=== PATIENT | male | born 2005 | race Caucasian/White ===

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

== ENCOUNTER 2025-02-19 10:38 | Outpatient (REF) | payer OTHER, SELFPAY ==
[2025-02-19 15:30] LABS: Abs Immature Grans 0.02 10^3/uL (0.0-0.06); HCT 42.6 % (40.0-50.0); HGB 14.8 g/dL (13.5-17.5); Immature Grans % 0.3 %; MCH 31.7 pg (27.0-33.0); MCHC 34.7 % (32.0-36.0); MCV 91 fL (80-95); MPV 10.9 fL (8.0-11.0); Platelet Count 206 10^3/uL (130-400); RBC 4.67 10^6/uL (4.36-5.78); RDW 11.8 % (11.8-14.1); RDW-SD 39.2 fL; WBC 7.12 10^3/uL (4.4-10.8)
[2025-02-19 15:48] LABS: ALT 24 U/L (16-63); AST 18 U/L (15-37); Albumin 4.5 g/dL (3.4-5.0); Alkaline Phosphatase 107 U/L (46-116); Anion Gap 7.9 mmol/L (3-11); BUN 21 mg/dL (7-18); Bilirubin, Total 0.7 mg/dL (0.2-1.0); CO2 30.1 mmol/L (21.0-32.0); Calcium 9.2 mg/dL (8.5-10.1); Chloride 102 mmol/L (98-107); Estimated GFR 129.13 (mL/min/1.73m2); Glucose 85 mg/dL (74-106); Potassium 4.9 mmol/L (3.5-5.1); Sodium 140 mmol/L (136-145); Total Protein 7.0 g/dL (6.4-8.2)
== END 2025-02-19 10:39 | disposition home or self-care (01) ==
LOC: NCHCN 10:38
PROVIDERS: Visit Provider Student in an Organized Health Care Education/Training Program
DX: F41.9 Anxiety disorder, unspecified (principal)
CPT/HCPCS: 80053; 85025

== ENCOUNTER 2025-02-24 15:27 | Emergency (ER) | payer OTHER, SELFPAY ==
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
[2025-02-24 15:31] VITALS: BP 115/72; PULSE 75; RESP 18; TEMP 37.1; O2SAT 95
--- NOTE | 2025-02-24 15:44 | ED.GENADUL_ITS ---
Discharge Plan Disposition Patient Disposition: Home Condition: Stable Discharge Details Clinical Impression: Contusion of hand, right Primary Care Provider: Aleksandar Hernandez ED Provider: Talib Gonzalez Home Meds and New Rx's Prescriptions: Continued fluoxetine 20 mg capsule 20 mg PO DAILY No Action fluoxetine 40 mg capsule See Rx Instructions .ROUTE .COMPLEX Qty: 30 3RF Dose Instruction: TAKE 1 CAPSULE BY MOUTH DAILY Rx Instructions: TAKE 1 CAPSULE BY MOUTH DAILY Discharge Instructions Additional Instructions: Your x-ray did not show any broken bones. If not improving in 1 to 2 weeks follow-up with your primary care provider. You can take 1000 mg of acetaminophen and 600 mg of ibuprofen every 6 hours as needed. If you feel more ill or have severe worsening pain return to the emergency department for evaluation. Keep your hand elevated while you are sitting or laying down can help with the swelling. HPI General Mode of arrival: ambulatory . Date/Time Provider Initiated Documentation: 02/24/25 15:30 . Limitations to Documentation: no limitations . Information obtained by: patient . History of Present Illness 20 year old M presents to the emergency department with the chief complaint of right hand pain s/p punching window, described as moderate, Quality is described as aching, and is localized to the right and upper extremity. Patient reports no radiation. Patient started experiencing this day(s) (1) and it has been constant. No relieving factors improve symptom(s), No exacerbating factors reported . Patient notes no other symptoms.. Patient did receive the following treatments prior to arrival, none Related Data Home Medications ?Medication ?Instructions ?Recorded ?Confirmed fluoxetine 40 mg capsule See Rx Instructions .Route 0 09/01/23 02/24/25 .COMPLEX #30 caps fluoxetine 20 mg capsule 20 mg PO DAILY 02/24/2501/11 Previous Rx's ?Medication ?Instructions ?Recorded fluoxetine 40 mg capsule See Rx Instructions .Route 0 09/01/23 .COMPLEX #30 caps Allergies Allergy/AdvReac Type Severity Reaction Status Date / Time No Known Drug Allergies Allergy sneezing Verified 02/24/25 15:37 Seasonal Allergies Allergy stuffy Uncoded 02/24/25 15:37 General Stated Complaint: Orthopedic RIO: 4 Review of Systems All systems reviewed & are unremarkable except as noted in HPI and below Constitutional Constitutional: Denies chills, Denies fever(s) and Denies weakness Cardiovascular Cardiovascular: Denies chest pain and Denies dyspnea Respiratory Respiratory: Denies dyspnea Gastrointestinal Gastrointestinal: Denies abdominal pain and Denies vomiting Neurologic Neurologic: Denies weakness Exam Const General: no acute distress Orientation: alert [facility] Head: normal to inspection Ears: external ears normal General nose exam: external nose normal Mouth: moist mucous membranes Eyes General: appearance normal, both eyes and all related structures Neck Neck: normal visual inspection Resp Effort & Inspection: normal respiratory effort and able to speak in complete sentences Cardio Rate: regular rate Skin General skin exam: no rashes or lesions noted Neuro General: patient alert and patient oriented x3 Extrem General: full ROM and capillary refill normal Psych Mental Status: mental status grossly normal Course Vital Signs Vital signs: Vital Signs Temperature 37.1 C 02/24/25 15:31 Pulse 75 02/24/25 15:31 Respiratory Rate 18 02/24/25 15:31 Blood Pressure 115/72 02/24/25 15:31 Pulse Oximetry 95 02/24/25 15:31 Temperature 37.1 C 02/24/25 15:31 Temperature Source Oral 02/24/25 15:31 Pulse 75 02/24/25 15:31 Respiratory Rate 18 02/24/25 15:31 Blood Pressure 115/72 02/24/25 15:31 Blood Pressure Position Sitting 02/24/25 15:31 Pulse Oximetry 95 02/24/25 15:31 Oxygen Delivery Method Room Air 02/24/25 15:31 Oxygen Flow Rate 0 02/24/25 15:31 Pain Level 5 02/24/25 15:31 Medical Decision Making 20-year-old male comes in with right hand pain. He says Tuesday night he was drinking alcohol 1 to see if he could punched through a window to drink or punch the window. He had pain in the right hand since. He denies pain elsewhere. He has swelling of the posterior hand on the ulnar surface. He has tenderness in this area. He has full range of motion of his fingers with intact sensation and pulses. No pain in the wrist. I suspect contusion versus boxer's fracture, we will obtain x-rays X-ray on my read shows no acute findings awaiting virtual radiology read. X-ray negative and patient stable. He will follow-up with his PCP if not improving and return precautions given Differential Diagnosis Differential Diagnosis: Fracture, contusion [facility] All Active Problems (Updated 02/24/25 @ 17:32 by Talib Gonzalez MD) Contusion of hand, right (Acute) Well adult health check (Acute) Tear of cartilage of right knee (Acute) COVID-19 (Acute) Maltracking of right patella (Acute) Depression with anxiety (Acute) Medical History (Updated 02/24/25 @ 17:32 by Talib Gonzalez MD) Wears glasses Surgical History Circumcision Family History Mother Thyroid cancer Father Anxiety Social History (Updated 04/07/23 @ 08:01 by Joya Canales RN) Smoking/Tobacco Use Status: Former Tobacco Use Smoking risk assessment performed?: Yes Alcohol Intake: current Alcohol Intake frequency: a few times a week Alcohol type: beer Drug use: Socially Substance use type: marijuana Household members: family Housing: house Pets and animals: Yes (4 dogs) Pets and animals: dog(s) Current gender identity: male Do you feel safe at home: Yes Do you feel safe in your relationship?: Yes PAWSS Have you Been Recently Intoxicated or Drunk Within the Last 30 days?: Yes Have you Ever Experienced Previous Episodes of Alcohol Withdrawal?: No Have you ever Experienced Withdrawal Seizures?: No Have you ever Experienced Delirium Tremens(DT)s?: No Have you ever undergone Alcohol Rehabilitation Treatment (i.e, inpt ot outpatient treatment programs)?: No Have you ever Experienced Blackouts?: No Have you ever Combined Alcohol with other Downers within the last 90 days?: No Have you ever Combined Alcohol with any other Substance of Abuse during the last 90 days?: No Positive Blood Alcohol level on Presentation? [PCS.BAL]: No Evidence of Increased Autonomic Activity (i.e. HR>120, tremor, sweating, agitation, nausea)?: No Result: 1
--- NOTE | 2025-02-24 17:37 | DI.VRAD_ITS ---
PROCEDURE INFORMATION: Exam: XR Right Hand Exam date and time: 02/24/2025 4:27 PM Age: 20 years old Clinical indication: Other: Pain, S/P punching a wall TECHNIQUE: Imaging protocol: Radiologic exam of the right hand. Views: 3 or more views. COMPARISON: CR XR HAND RT COMPLETE 11/07/2021 1:00 AM FINDINGS: Bones/joints: Normal. Soft tissues: Normal. IMPRESSION: No evidence for fracture. Dictated and Authenticated by: Maria De Jesus Suárez MD. Orderin Lisa Mayers MD
[2025-02-24 17:54] VITALS: BP 114/55; PULSE 67; RESP 16; TEMP 36.7; O2SAT 98
== END 2025-02-24 17:55 | disposition home or self-care (01) ==
PROVIDERS: Emergency Provider Emergency Medicine; PCP Student in an Organized Health Care Education/Training Program
DX: S60.221A Contusion of right hand, initial encounter (principal); W22.8XXA Striking against or struck by other objects, initial encounter
CPT/HCPCS: 99283 ×2; 73130